=== PATIENT | female | born 1990 | race Caucasian/White ===

== ENCOUNTER 2020-12-12 09:51 | Emergency (ER) | payer SELFPAY ==
[2020-12-12] MEDS ORDERED: Boostrix 0.5 ML (Tdap) VIAL ONE (10:17)
[2020-12-12] MEDS ORDERED: Lidocaine 1% w/Epinephrine 1:100K 20 ML VIAL ONE (10:17)
[2020-12-12] MEDS ORDERED: Bacitracin 1 PK ONE (10:17)
== END 2020-12-12 11:33 | disposition home or self-care (01) ==
LOC: MADERS 09:51
DX: S81.811A Laceration without foreign body, right lower leg, initial encounter (principal); Z23 Encounter for immunization; W26.8XXA Contact with other sharp object(s), not elsewhere classified, initial encounter
CPT/HCPCS: 12002; 90471; 90715